=== PATIENT | female | born 1990 | race Caucasian/White ===

== ENCOUNTER 2016-07-12 12:31 | Emergency (ER) | payer MEDICAID ==
[~2016-07-12 12:31] MED LIST: ACETAMINOPHEN500 M1
== END 2016-07-12 14:50 | disposition home or self-care (01) ==
LOC: D.ER 12:31
DX: S93.401A Sprain of unspecified ligament of right ankle, initial encounter (principal); X58.XXXA Exposure to other specified factors, initial encounter; Y93.89 Activity, other specified; Y92.019 Unspecified place in single-family (private) house as the place of occurrence of the external cause

== ENCOUNTER 2017-03-09 13:05 | Emergency (ER) | payer MEDICAID | END 2017-03-09 16:48 | disposition home or self-care (01) | LOC: D.ER 13:05 | DX: S40.012A Contusion of left shoulder, initial encounter (principal); S40.022A Contusion of left upper arm, initial encounter; Y04.2XXA Assault by strike against or bumped into by another person, initial encounter; Y93.89 Activity, other specified; Y92.89 Other specified places as the place of occurrence of the external cause ==